=== PATIENT | male | born 1955 | race Hispanic/Latino ===

== ENCOUNTER 2016-06-04 06:44 | Outpatient (CLI) | payer OTHER ==
--- NOTE | 2016-06-04 09:09 | Fluoroscopy Report ---
Double contrast barium enema: The bowel is incompletely cleansed with adherent fecal matter scattered along the entire length. The bowel is well coated and moderately well-distended with filling to the cecum. There are scattered small diverticula predominantly in the sigmoid colon. The cecum is not optimally from overlapping bowel. No suspicious filling defects are identified although a small polyp could not be excluded on this exam. No other significant findings. Impression: Suboptimal cleansing. Diverticulosis.
== END 2016-06-04 06:45 | disposition home or self-care (01) ==
LOC: FLUORO 06:44
PROVIDERS: ATTEND Internal Medicine Gastroenterology
DX: Z12.11 Encounter for screening for malignant neoplasm of colon (principal); K57.30 Diverticulosis of large intestine without perforation or abscess without bleeding
CPT/HCPCS: 74280